=== PATIENT | female | born 1950 | race Caucasian/White ===

== ENCOUNTER → 2016-08-18 | Outpatient (CLI) | payer MEDICARE, OTHER ==
[2016-08-18 09:00] VITALS: BP 122/73
[2016-08-18 12:12] LABS: BUN/Creatinine Ratio 18.8; Calcium 8.6 mg/dL (8.5-10.1); Potassium 3.9 mmol/L (3.5-5.1)
[2016-08-18 12:13] LABS: INR 0.99 (0.9-1.15); Partial Thromboplastin Time 24.3 sec (22.64-33.71); Prothrombin Time 10.2 sec (9.37-12.3)
[2016-08-18 12:56] LABS: Basophils # (auto) 0.1 uL; Basophils % (auto) 2.7 % (0.0-2.0); Eosinophils # (auto) 0.1 uL; Hematocrit 39.7 % (36.0-46.0); Hemoglobin 13.1 g/dL (12.2-16.2); Lymphocytes # (auto) 1.1 uL; Lymphocytes % (auto) 32.6 % (10.0-50.0); Mean Corpuscular Hemoglobin 29.8 pg (28.0-32.0); Mean Corpuscular Volume 90.1 fL (80.0-100.0); Monocytes # (auto) 0.3 uL; Monocytes % (auto) 8.2 % (0.0-12.0); Neutrophils # (auto) 1.7 uL; Neutrophils % (auto) 52.5 % (37.0-80.0); Platelet Count (auto) 190 10^3/uL (140-450); Red Cell Distribution Width 12.1 % (11.6-16.0); White Blood Cell 3.3 10^3/uL (4.4-10.8)
== END | disposition home or self-care (01) ==
LOC: Rad HDHVI 08:50
PROVIDERS: ATTEND Internal Medicine Cardiovascular Disease
DX: I10 Essential (primary) hypertension (principal); D64.9 Anemia, unspecified; R79.1 Abnormal coagulation profile
CPT/HCPCS: 36415; 71020; 80048; 85025; 85049; 85610; 85730; 93017; G0463

== ENCOUNTER 2016-08-23 06:51 | Day surgery (SDC) | payer MEDICARE, OTHER ==
[2016-08-23] MEDS ORDERED: LIDOCAINE 2%HCL (LOCAL ANESTH.) INJ 20ML MDV ONE (07:19)
[2016-08-23] MEDS ORDERED: IOHEXOL 350 MG/ML 100ML IJ ONE ×2 (07:19→08:54)
[2016-08-23] MEDS ORDERED: TRAM50TA2 PO (07:47)
[2016-08-23] MEDS ORDERED: HYDR200T OR (07:47)
[2016-08-23] MEDS ORDERED: ATE50T PO (07:47)
[2016-08-23] MEDS ORDERED: CYCL0.05 EACHEYE (07:47)
[2016-08-23] MEDS ORDERED: CYCL1POW25 XX (07:47)
[2016-08-23] MEDS ORDERED: LEVO75TA6 PO (07:47)
[2016-08-23] MEDS ORDERED: DEXL60CA3 PO (07:47)
[2016-08-23] MEDS ORDERED: SIMV-8 PO (07:47)
[2016-08-23] MEDS ORDERED: MIDAZOLAM HCL 1MG/1ML-2 ML VIAL ONE (08:35)
[2016-08-23] MEDS ORDERED: ANGIOMAX 250 MG VIAL IV ONE (08:36)
[2016-08-23] MEDS ORDERED: fentaNYL CITRATE 100 MCG/2 ML VL ONE (08:36)
[2016-08-23] MEDS ORDERED: SODIUM CHL 0.9% 0 ML ONE (08:36)
[2016-08-23] MEDS ORDERED: HYDROcodone-ACET 5/325MG TAB PO PRN (09:30)
[2016-08-23] MEDS ORDERED: ACETAMINOPHEN 500 MG TAB PO PRN (09:30)
== END 2016-08-23 11:30 | disposition home or self-care (01) ==
LOC: CATH 06:51
PROVIDERS: ATTEND Internal Medicine Cardiovascular Disease
DX: R94.39 Abnormal result of other cardiovascular function study (principal)
CPT/HCPCS: 93458; C1760; C1894; J1644; J2250; J3010; Q9967

== ENCOUNTER → 2016-12-14 | Outpatient (CLI) | payer MEDICARE, OTHER ==
[~2016-12-14] MED LIST: ATE50T PO; CYCL0.05 EACHEYE; CYCL1POW25 XX; DEXL60CA3 PO; HYDR200T OR; LEVO75TA6 PO; SIMV-8 PO; TRAM50TA2 PO
[2016-12-14 08:32] LABS: Basophils # (auto) 0.1 uL; Basophils % (auto) 1.4 % (0.0-2.0); Eosinophils # (auto) 0.2 uL; Eosinophils % (auto) 4.6 % (0.0-7.0); Hematocrit 39.5 % (36.0-46.0); Hemoglobin 13.3 g/dL (12.2-16.2); Lymphocytes # (auto) 1.3 uL; Mean Corpuscular Hemoglobin 29.8 pg (28.0-32.0); Mean Corpuscular Hgb Conc. 33.6 g/dL (32.0-36.0); Mean Corpuscular Volume 88.5 fL (80.0-100.0); Mean Platelet Volume 8.4 fL (7.4-10.4); Monocytes # (auto) 0.3 uL; Monocytes % (auto) 7.7 % (0.0-12.0); Neutrophils # (auto) 1.9 uL; Neutrophils % (auto) 51.3 % (37.0-80.0); Platelet Count (auto) 242 10^3/uL (140-450); Red Cell Distribution Width 12.9 % (11.6-16.0); White Blood Cell 3.7 10^3/uL (4.4-10.8)
[2016-12-14 09:02] LABS: Albumin 3.7 g/dL (3.4-5.0); BUN/Creatinine Ratio 27.3; Bilirubin, Total 0.6 mg/dL (0.2-1.0); Potassium 4.1 mmol/L (3.5-5.1); Total Protein 6.5 g/dL (6.4-8.2)
[2016-12-14 10:39] LABS: Aspartate Aminotransferase 16 U/L (15-37); Cholesterol 172 mg/dL (< 200); HDL Cholesterol 81 mg/dL (40-59); LDL Cholesterol 96 mg/dL (< 100); Triglycerides 73 mg/dL (< 150)
== END | disposition home or self-care (01) ==
LOC: LAB 08:04
DX: M06.9 Rheumatoid arthritis, unspecified (principal); E03.9 Hypothyroidism, unspecified; I10 Essential (primary) hypertension; D64.9 Anemia, unspecified; M25.50 Pain in unspecified joint; Z79.899 Other long term (current) drug therapy
CPT/HCPCS: 36415; 80053; 80061; 84443; 84450; 85025; 85652; 86141

== ENCOUNTER → 2017-01-04 | Outpatient (CLI) | payer MEDICARE, OTHER ==
[2017-01-04 13:16] LABS: Urine Bilirubin Negative (Negative); Urine Blood Negative /uL (Negative); Urine Color Yellow (Yellow); Urine Glucose Normal (Normal); Urine Ketone Negative (Negative); Urine Nitrite Negative (Negative); Urine RBC 3 /hpf (0 - 4); Urine Squamous Epithelial Cell FEW /hpf (<5); Urine Urobilinogen Normal (Negative)
== END | disposition home or self-care (01) ==
LOC: LAB 12:49
DX: M06.9 Rheumatoid arthritis, unspecified (principal); E03.9 Hypothyroidism, unspecified
CPT/HCPCS: 81001

== ENCOUNTER → 2017-02-27 | Outpatient (CLI) | payer MEDICARE, OTHER ==
[2017-02-27 09:10] LABS: Urine Bilirubin Negative (Negative); Urine Blood TRACE /uL (Negative); Urine Color Yellow (Yellow); Urine Glucose Normal (Normal); Urine Ketone Negative (Negative); Urine Nitrite Negative (Negative); Urine RBC 2 /hpf (0 - 4); Urine Urobilinogen Normal (Negative)
[2017-02-27 09:12] LABS: Basophils # (auto) 0.1 uL; Basophils % (auto) 1.4 % (0.0-2.0); CONDITION Y; Eosinophils # (auto) 0.2 uL; Eosinophils % (auto) 5.8 % (0.0-7.0); Hematocrit 41.3 % (36.0-46.0); Hemoglobin 13.8 g/dL (12.2-16.2); Lymphocytes # (auto) 1.3 uL; Mean Corpuscular Hemoglobin 29.5 pg (28.0-32.0); Mean Corpuscular Hgb Conc. 33.4 g/dL (32.0-36.0); Mean Corpuscular Volume 88.5 fL (80.0-100.0); Mean Platelet Volume 8.4 fL (7.4-10.4); Monocytes # (auto) 0.3 uL; Monocytes % (auto) 8.5 % (0.0-12.0); Neutrophils # (auto) 1.8 uL; Neutrophils % (auto) 49.3 % (37.0-80.0); Platelet Count (auto) 247 10^3/uL (140-450); Red Cell Distribution Width 12.9 % (11.6-16.0); White Blood Cell 3.7 10^3/uL (4.4-10.8)
[2017-02-27 09:57] LABS: Albumin 3.8 g/dL (3.4-5.0); BUN/Creatinine Ratio 18.9; Bilirubin, Total 0.6 mg/dL (0.2-1.0); Total Protein 6.7 g/dL (6.4-8.2)
== END | disposition home or self-care (01) ==
LOC: LAB 08:28
DX: M06.9 Rheumatoid arthritis, unspecified (principal); D64.9 Anemia, unspecified; I10 Essential (primary) hypertension; C34.90 Malignant neoplasm of unspecified part of unspecified bronchus or lung; E03.9 Hypothyroidism, unspecified; E78.2 Mixed hyperlipidemia
CPT/HCPCS: 36415; 80053; 80061; 81001; 84443; 85025; 85652; 86141

== ENCOUNTER → 2018-12-18 | Outpatient (CLI) | payer MEDICARE, OTHER ==
[~2018-12-18] MED LIST changes: +HYDR-4441 OR; -HYDR200T OR
[2018-12-18 12:09] LABS: Basophils # (auto) 0 uL; Basophils % (auto) 1.3 % (0.0-2.0); Eosinophils # (auto) 0.1 uL; Eosinophils % (auto) 2.9 % (0.0-7.0); Hemoglobin 13.5 g/dL (12.2-16.2); Lymphocytes # (auto) 0.9 uL; Lymphocytes % (auto) 29.2 % (10.0-50.0); Mean Corpuscular Hemoglobin 30.6 pg (28.0-32.0); Mean Corpuscular Hgb Conc. 33.7 g/dL (32.0-36.0); Mean Corpuscular Volume 90.9 fL (80.0-100.0); Monocytes # (auto) 0.3 uL; Monocytes % (auto) 8.4 % (0.0-12.0); Neutrophils # (auto) 1.9 uL; Neutrophils % (auto) 58.2 % (37.0-80.0); Nucleated Red Blood Cells % 0.1 %; Platelet Count (auto) 191 10^3/uL (140-450); Red Cell Distribution Width 13.1 % (11.8-14.3); Urine Blood Negative /uL (Negative); White Blood Cell 3.2 10^3/uL (4.4-10.8)
[2018-12-18 12:18] LABS: Potassium 4.1 mmol/L (3.5-5.1)
[2018-12-18 12:24] LABS: Free T4 (Free Thyroxine) 1.04 ng/dL (0.89-1.76)
[2018-12-18 12:26] LABS: BUN/Creatinine Ratio 17.8; Bilirubin, Total 0.5 mg/dL (0.2-1.0); Total Protein 6.7 g/dL (6.4-8.2)
== END | disposition home or self-care (01) ==
LOC: Rad HDHVI 07:46
PROVIDERS: ATTEND Internal Medicine Cardiovascular Disease
DX: I08.8 Other rheumatic multiple valve diseases (principal); E03.9 Hypothyroidism, unspecified; E55.9 Vitamin D deficiency, unspecified; D51.9 Vitamin B12 deficiency anemia, unspecified; N39.0 Urinary tract infection, site not specified; R42 Dizziness and giddiness; Z79.899 Other long term (current) drug therapy
CPT/HCPCS: 36415; 80053; 80061; 81003; 82306; 82607; 83036; 84439; 84443; 85025; 93306; 93880

== ENCOUNTER 2019-02-03 09:36 | Day surgery (SDC) | payer MEDICARE, OTHER ==
[2019-01-28 08:41] LABS: Basophils # (auto) 0 uL; Basophils % (auto) 1.2 % (0.0-2.0); Eosinophils # (auto) 0.1 uL; Eosinophils % (auto) 2.6 % (0.0-7.0); Hematocrit 39.1 % (36.0-46.0); Hemoglobin 13.1 g/dL (12.2-16.2); Lymphocytes # (auto) 0.8 uL; Lymphocytes % (auto) 19.9 % (10.0-50.0); Mean Corpuscular Hemoglobin 30.3 pg (28.0-32.0); Mean Corpuscular Hgb Conc. 33.5 g/dL (32.0-36.0); Mean Corpuscular Volume 90.7 fL (80.0-100.0); Monocytes # (auto) 0.4 uL; Monocytes % (auto) 10.3 % (0.0-12.0); Neutrophils # (auto) 2.6 uL; Platelet Count (auto) 189 10^3/uL (140-450); Red Blood Cells 4.32 10^6/uL (4.0-5.20); Red Cell Distribution Width 13.3 % (11.8-14.3)
[2019-01-28 08:56] LABS: Urine Bacteria NONE SEEN /hpf (None Seen); Urine Blood TRACE /uL (Negative); Urine Specific Gravity 1.006 (1.001-1.035); Urine WBC <1 /hpf (0 - 5)
[2019-01-28 09:05] LABS: INR 0.96 (0.9-1.15); Partial Thromboplastin Time 23.1 sec (23.64-32.05)
[2019-01-28 09:18] LABS: Alanine Aminotransferase 25 U/L (13-56); Albumin 4.1 g/dL (3.4-5.0); Anion Gap 8 (5-15); Aspartate Aminotransferase 21 U/L (15-37); BUN/Creatinine Ratio 18.1; Blood Urea Nitrogen 15 mg/dL (7-18); Carbon Dioxide 26 mmol/L (21-32); Chloride 110 mmol/L (98-107); GFR African American 87 mL/min; GFR Non-African American 72 mL/min; Glucose 116 mg/dL (74-106); Sodium 144 mmol/L (136-145)
[2019-01-28 09:21] LABS: Alkaline Phosphatase 41 U/L (45-117); Bilirubin, Total 0.7 mg/dL (0.2-1.0); Total Protein 6.9 g/dL (6.4-8.2)
[~2019-02-03] VITALS: Ht 162.6 cm; Wt 73.0 kg
[~2019-02-03 09:36] MED LIST changes: +ALBUAER3 IN; +CELE100C82 PO; -CYCL1POW25 XX; +CYCL1TAB18 PO; +TOFA10TA PO
[2019-02-03] MEDS ORDERED: MIDAZOLAM HCL 1MG/1ML-2 ML VIAL ONE (11:04)
[2019-02-03] MEDS ORDERED: METOCLOPRAMIDE HCL 5MG/ml INJ 2ml VIAL ONE (11:04)
[2019-02-03] MEDS ORDERED: GLYCOPYRROLATE 0.2 MG/ML 1ML VIAL ONE (11:05)
[2019-02-03] MEDS ORDERED: diphenhdrAMINE HCL 50 MG/1 ML VL ONE (11:05)
[2019-02-03] MEDS ORDERED: PROPOFOL 10 MG/ML 20 ML IV ONE (11:06)
[2019-02-03] MEDS ORDERED: LIDOCAINE 2% (LOCAL ANESTH.) PF 5ml SDV ONE (11:06)
[2019-02-03] MEDS ORDERED: ESMOLOL HCL 10 ML IV ONE (11:28)
[2019-02-03] MEDS ORDERED: ONDANSETRON HCL 4 MG/2 ML VIAL IV ONE (11:30)
[2019-02-03] MEDS ORDERED: NALOXONE HCL 0.4 MG/ML VIAL IV PRN (11:30)
[2019-02-03] MEDS ORDERED: HYDROmorphone HCL 2 MG/ML VL IV PRN (11:30)
[2019-02-03 12:00] VITALS: BP 129/86
== END 2019-02-03 12:10 | disposition home or self-care (01) ==
LOC: GI 09:36
PROVIDERS: ATTEND Internal Medicine Gastroenterology
DX: K92.1 Melena (principal); K59.00 Constipation, unspecified; K64.8 Other hemorrhoids; E66.9 Obesity, unspecified; M19.90 Unspecified osteoarthritis, unspecified site; I10 Essential (primary) hypertension; K21.9 Gastro-esophageal reflux disease without esophagitis; J44.9 Chronic obstructive pulmonary disease, unspecified; G47.33 Obstructive sleep apnea (adult) (pediatric); Z68.27 Body mass index [BMI] 27.0-27.9, adult; Z91.018 Allergy to other foods; Z87.891 Personal history of nicotine dependence; Z85.118 Personal history of other malignant neoplasm of bronchus and lung; Z85.42 Personal history of malignant neoplasm of other parts of uterus; Z86.010 Personal history of colon polyps; Z90.710 Acquired absence of both cervix and uterus; Z98.890 Other specified postprocedural states; Z79.899 Other long term (current) drug therapy; Z98.49 Cataract extraction status, unspecified eye; Z80.1 Family history of malignant neoplasm of trachea, bronchus and lung
CPT/HCPCS: 36415; 43235; 45378; 80053; 81001; 85025; 85610; 85730; J1200; J2001; J2250; J2704; J2765; J7030; 93005

== ENCOUNTER → 2019-12-08 | Outpatient (CLI) | payer MEDICARE, OTHER ==
[~2019-12-08] MED LIST changes: +HYDR-4188 OR; -HYDR-4441 OR
[2019-12-08 16:04] LABS: Basophils # (auto) 0.1 10 ^3/uL (0-0.2); Eosinophils # (auto) 0.2 10 ^3/uL (0-0.8); Eosinophils % (auto) 3.2 % (0.0-7.0); Hematocrit 40.5 % (36.0-46.0); Hemoglobin 13.4 g/dL (12.2-16.2); Lymphocytes # (auto) 1.6 10 ^3/uL (0.4-5.4); Lymphocytes % (auto) 29.1 % (10.0-50.0); Mean Corpuscular Hemoglobin 29.9 pg (28.0-32.0); Mean Corpuscular Hgb Conc. 33.1 g/dL (32.0-36.0); Mean Corpuscular Volume 90.4 fL (80.0-100.0); Monocytes # (auto) 0.5 10 ^3/uL (0-1.3); Monocytes % (auto) 9.8 % (0.0-12.0); Neutrophils % (auto) 56.9 % (37.0-80.0); Nucleated Red Blood Cells % 0.2 %; Platelet Count (auto) 217 10^3/uL (140-450); Red Blood Cells 4.49 10^6/uL (4.0-5.20); Red Cell Distribution Width 12.8 % (11.8-14.3); White Blood Cell 5.3 10^3/uL (4.4-10.8)
[2019-12-08 16:08] LABS: Albumin 3.6 g/dL (3.4-5.0); Potassium 4.1 mmol/L (3.5-5.1)
[2019-12-08 16:16] LABS: BUN/Creatinine Ratio 17.1; Bilirubin, Direct 0.1 mg/dL (0-0.2); Bilirubin, Total 0.4 mg/dL (0.2-1.0); Calcium 9.1 mg/dL (8.5-10.1)
[2019-12-08 17:01] LABS: Urine Bacteria FEW /hpf (None Seen); Urine Blood TRACE /uL (Negative); Urine Mucus FEW (None Seen); Urine Specific Gravity 1.008 (1.001-1.035); Urine WBC 69 /hpf (0 - 5); Urine WBC Clumps PRESENT /hpf (None Seen)
== END | disposition home or self-care (01) ==
LOC: Rad HDHVI 12:11
PROVIDERS: ATTEND Internal Medicine Cardiovascular Disease
DX: Z00.00 Encounter for general adult medical examination without abnormal findings (principal); E03.9 Hypothyroidism, unspecified; K90.9 Intestinal malabsorption, unspecified; Z79.899 Other long term (current) drug therapy; N39.0 Urinary tract infection, site not specified
CPT/HCPCS: 36415; 80048; 80061; 80076; 81001; 82306; 83036; 84443; 85025

== ENCOUNTER → 2019-12-15 | Outpatient (CLI) | payer MEDICARE, OTHER ==
[2019-12-15 15:54] LABS: Urine Blood TRACE /uL (Negative); Urine Specific Gravity 1.014 (1.001-1.035)
== END | disposition home or self-care (01) ==
LOC: LAB 11:23
PROVIDERS: ATTEND Internal Medicine Cardiovascular Disease
DX: N39.0 Urinary tract infection, site not specified (principal)
CPT/HCPCS: 81003

== ENCOUNTER → 2020-01-05 | Outpatient (CLI) | payer MEDICARE, OTHER ==
[~2020-01-05] MED LIST changes: +CYCL10TA6 PO; -CYCL1TAB18 PO
[2020-01-05 13:16] LABS: Basophils # (auto) 0.1 10 ^3/uL (0-0.2); Basophils % (auto) 2.7 % (0.0-2.0); Eosinophils # (auto) 0.2 10 ^3/uL (0-0.8); Eosinophils % (auto) 3.4 % (0.0-7.0); Hematocrit 38.2 % (36.0-46.0); Lymphocytes # (auto) 1.1 10 ^3/uL (0.4-5.4); Lymphocytes % (auto) 24.3 % (10.0-50.0); Mean Corpuscular Hemoglobin 30.5 pg (28.0-32.0); Mean Corpuscular Volume 89.6 fL (80.0-100.0); Monocytes # (auto) 0.4 10 ^3/uL (0-1.3); Neutrophils # (auto) 2.8 10 ^3/uL (1.6-8.6); Neutrophils % (auto) 60.6 % (37.0-80.0); Nucleated Red Blood Cells % 0.1 %; Platelet Count (auto) 175 10^3/uL (140-450); Red Blood Cells 4.26 10^6/uL (4.0-5.20); Red Cell Distribution Width 12.6 % (11.8-14.3); White Blood Cell 4.6 10^3/uL (4.4-10.8)
[2020-01-05 16:23] LABS: Alanine Aminotransferase 26 U/L (13-56); Albumin 3.8 g/dL (3.4-5.0); Anion Gap 6 (5-15); Aspartate Aminotransferase 21 U/L (15-37); BUN/Creatinine Ratio 18.2; Blood Urea Nitrogen 14 mg/dL (7-18); Calcium 8.7 mg/dL (8.5-10.1); Carbon Dioxide 29 mmol/L (21-32); Chloride 104 mmol/L (98-107); GFR African American 95 mL/min; GFR Non-African American 79 mL/min; Glucose 98 mg/dL (74-106); Potassium 4.1 mmol/L (3.5-5.1); Sodium 139 mmol/L (136-145)
[2020-01-05 16:25] LABS: Alkaline Phosphatase 47 U/L (45-117); Bilirubin, Total 0.5 mg/dL (0.2-1.0); Total Protein 6.8 g/dL (6.4-8.2)
[2020-01-05 19:15] LABS: CRP High Sensitivity 0.07 mg/dL (< 0.3)
== END | disposition home or self-care (01) ==
LOC: LAB 13:01
PROVIDERS: ATTEND Internal Medicine Rheumatology
DX: M05.79 Rheumatoid arthritis with rheumatoid factor of multiple sites without organ or systems involvement (principal); M32.10 Systemic lupus erythematosus, organ or system involvement unspecified
CPT/HCPCS: 36415; 80053; 85025; 85652; 86038; 86141; 86225

== ENCOUNTER → 2020-03-09 | Outpatient (CLI) | payer MEDICARE, OTHER ==
[~2020-03-09] MED LIST changes: -DEXL60CA3 PO; +DEXL60CA4 PO
[2020-03-09 15:59] LABS: Basophils # (auto) 0.1 10 ^3/uL (0-0.2); Basophils % (auto) 2.7 % (0.0-2.0); Eosinophils # (auto) 0.2 10 ^3/uL (0-0.8); Eosinophils % (auto) 4.9 % (0.0-7.0); Hemoglobin 13.4 g/dL (12.2-16.2); Lymphocytes # (auto) 1.2 10 ^3/uL (0.4-5.4); Lymphocytes % (auto) 34.3 % (10.0-50.0); Mean Corpuscular Hemoglobin 29.9 pg (28.0-32.0); Mean Corpuscular Hgb Conc. 32.7 g/dL (32.0-36.0); Mean Corpuscular Volume 91.3 fL (80.0-100.0); Monocytes # (auto) 0.3 10 ^3/uL (0-1.3); Monocytes % (auto) 9.8 % (0.0-12.0); Neutrophils # (auto) 1.6 10 ^3/uL (1.6-8.6); Neutrophils % (auto) 48.3 % (37.0-80.0); Platelet Count (auto) 212 10^3/uL (140-450); Red Cell Distribution Width 13.3 % (11.8-14.3); White Blood Cell 3.4 10^3/uL (4.4-10.8)
[2020-03-09 16:00] LABS: CRP High Sensitivity 0.03 mg/dL (< 0.3); Calcium 8.9 mg/dL (8.5-10.1); Potassium 3.8 mmol/L (3.5-5.1)
[2020-03-09 16:04] LABS: BUN/Creatinine Ratio 16.9; Bilirubin, Total 0.4 mg/dL (0.2-1.0); Total Protein 6.7 g/dL (6.4-8.2)
== END | disposition home or self-care (01) ==
LOC: LAB 11:26
PROVIDERS: ATTEND Internal Medicine Cardiovascular Disease
DX: M05.79 Rheumatoid arthritis with rheumatoid factor of multiple sites without organ or systems involvement (principal)
CPT/HCPCS: 36415; 80053; 85025; 85652; 86141

== ENCOUNTER → 2020-07-27 | Outpatient (CLI) | payer MEDICARE, OTHER | END | disposition home or self-care (01) | LOC: Rad HDHVI 08:11 | PROVIDERS: ATTEND Internal Medicine Cardiovascular Disease | DX: I05.8 Other rheumatic mitral valve diseases (principal); I50.33 Acute on chronic diastolic (congestive) heart failure; R42 Dizziness and giddiness | CPT/HCPCS: 93306 ==

== ENCOUNTER → 2020-10-20 | Outpatient (CLI) | payer MEDICARE, OTHER ==
[~2020-10-20] MED LIST changes: +READI-CAT 2 (BARIUM SULF)(VANILLA SMOOTHIE) 450ML ONE
== END | disposition home or self-care (01) ==
LOC: Rad HDHVI 09:37
PROVIDERS: ATTEND Internal Medicine Cardiovascular Disease
DX: N28.1 Cyst of kidney, acquired (principal); I70.0 Atherosclerosis of aorta; M47.816 Spondylosis without myelopathy or radiculopathy, lumbar region; M25.78 Osteophyte, vertebrae
CPT/HCPCS: 74176

== ENCOUNTER → 2021-03-02 | Outpatient (CLI) | payer MEDICARE, OTHER ==
[~2021-03-02] MED LIST changes: -READI-CAT 2 (BARIUM SULF)(VANILLA SMOOTHIE) 450ML ONE
== END | disposition home or self-care (01) ==
LOC: Rad HDHVI 13:47
PROVIDERS: ATTEND Internal Medicine Cardiovascular Disease
DX: R07.89 Other chest pain (principal); R06.02 Shortness of breath
CPT/HCPCS: 93306

== ENCOUNTER → 2021-03-11 | Outpatient (CLI) | payer MEDICARE, OTHER ==
[2021-03-11 11:27] LABS: Urine Blood TRACE /uL (Negative); Urine Specific Gravity 1.015 (1.001-1.035)
[2021-03-11 11:29] LABS: Basophils # (auto) 0.1 10 ^3/uL (0-0.2); Basophils % (auto) 1.8 % (0.0-2.0); Eosinophils # (auto) 0.1 10 ^3/uL (0-0.8); Eosinophils % (auto) 2.7 % (0.0-7.0); Hematocrit 38.5 % (36.0-46.0); Hemoglobin 13.4 g/dL (12.2-16.2); Lymphocytes # (auto) 0.9 10 ^3/uL (0.4-5.4); Lymphocytes % (auto) 30.1 % (10.0-50.0); Mean Corpuscular Hemoglobin 31.3 pg (28.0-32.0); Mean Corpuscular Hgb Conc. 34.9 g/dL (32.0-36.0); Mean Corpuscular Volume 89.7 fL (80.0-100.0); Monocytes # (auto) 0.3 10 ^3/uL (0-1.3); Monocytes % (auto) 9.6 % (0.0-12.0); Neutrophils # (auto) 1.7 10 ^3/uL (1.6-8.6); Neutrophils % (auto) 55.8 % (37.0-80.0); Red Blood Cells 4.29 10^6/uL (4.0-5.20)
[2021-03-11 11:41] LABS: Potassium 3.6 mmol/L (3.5-5.1)
[2021-03-11 11:50] LABS: Free T4 (Free Thyroxine) 1.2 ng/dL (0.89-1.76)
[2021-03-11 11:53] LABS: Albumin 3.5 g/dL (3.4-5.0); BUN/Creatinine Ratio 19.3; Bilirubin, Total 0.8 mg/dL (0.2-1.0); Total Protein 6.4 g/dL (6.4-8.2)
== END | disposition home or self-care (01) ==
LOC: LAB 07:52
PROVIDERS: ATTEND Internal Medicine Cardiovascular Disease
DX: D51.3 Other dietary vitamin B12 deficiency anemia (principal); I10 Essential (primary) hypertension; E11.9 Type 2 diabetes mellitus without complications; E55.9 Vitamin D deficiency, unspecified; D64.9 Anemia, unspecified; R00.2 Palpitations; R53.1 Weakness; R30.0 Dysuria
CPT/HCPCS: 36415; 80053; 80061; 81003; 82306; 82607; 83036; 84439; 84443; 85025

== ENCOUNTER → 2021-03-14 | Outpatient (CLI) | payer MEDICARE, OTHER ==
[~2021-03-14] VITALS: Ht 160 cm; Wt 70.8 kg
[~2021-03-14] MED LIST changes: +ADENOSINE 59 MG in GIVE UN-DILUTED 0 ML IV ONE; +ADENOSINE 90 MG/30 ML INJ IV ONE
== END | disposition home or self-care (01) ==
LOC: Rad HDHVI 13:20
PROVIDERS: ATTEND Internal Medicine Cardiovascular Disease
DX: I10 Essential (primary) hypertension (principal); E78.5 Hyperlipidemia, unspecified; E11.9 Type 2 diabetes mellitus without complications; Z82.49 Family history of ischemic heart disease and other diseases of the circulatory system
CPT/HCPCS: 78452; 93005; 96374; 96375; A9500; J0153

== ENCOUNTER → 2021-06-27 | Outpatient (CLI) | payer MEDICARE, OTHER ==
[~2021-06-27] MED LIST changes: -ADENOSINE 59 MG in GIVE UN-DILUTED 0 ML IV ONE; -ADENOSINE 90 MG/30 ML INJ IV ONE; +CYCL-839 PO; -CYCL10TA6 PO
[2021-06-27 12:06] LABS: Urine Blood Negative /uL (Negative); Urine Specific Gravity 1.011 (1.001-1.035)
== END | disposition home or self-care (01) ==
LOC: LAB 10:20
PROVIDERS: ATTEND Internal Medicine Cardiovascular Disease
DX: N39.0 Urinary tract infection, site not specified (principal)
CPT/HCPCS: 81003; 87086; 87088; 87186

== ENCOUNTER → 2021-08-08 | Outpatient (CLI) | payer MEDICARE, OTHER ==
[2021-08-08 11:46] LABS: Basophils # (auto) 0 10 ^3/uL (0-0.2); Basophils % (auto) 1.2 % (0.0-2.0); Eosinophils # (auto) 0.1 10 ^3/uL (0-0.8); Eosinophils % (auto) 3.9 % (0.0-7.0); Hematocrit 40.2 % (36.0-46.0); Hemoglobin 13.6 g/dL (12.2-16.2); Lymphocytes % (auto) 28.8 % (10.0-50.0); Mean Corpuscular Hemoglobin 30.5 pg (28.0-32.0); Mean Corpuscular Hgb Conc. 33.9 g/dL (32.0-36.0); Mean Corpuscular Volume 89.9 fL (80.0-100.0); Monocytes # (auto) 0.3 10 ^3/uL (0-1.3); Monocytes % (auto) 9.3 % (0.0-12.0); Neutrophils # (auto) 1.9 10 ^3/uL (1.6-8.6); Neutrophils % (auto) 56.8 % (37.0-80.0); Red Blood Cells 4.47 10^6/uL (4.0-5.20); Red Cell Distribution Width 12.2 % (11.8-14.3); White Blood Cell 3.4 10^3/uL (4.4-10.8)
[2021-08-08 12:53] LABS: Potassium 4.4 mmol/L (3.5-5.1)
[2021-08-08 13:00] LABS: Albumin 3.5 g/dL (3.4-5.0); BUN/Creatinine Ratio 23.6; Bilirubin, Total 0.4 mg/dL (0.2-1.0); CRP High Sensitivity 0.05 mg/dL (< 0.3); Calcium 8.8 mg/dL (8.5-10.1); Total Protein 6.3 g/dL (6.4-8.2)
== END | disposition home or self-care (01) ==
LOC: LAB 08:47
PROVIDERS: ATTEND Internal Medicine Cardiovascular Disease
DX: M05.79 Rheumatoid arthritis with rheumatoid factor of multiple sites without organ or systems involvement (principal)
CPT/HCPCS: 36415; 80053; 85025; 85652; 86141

== ENCOUNTER → 2022-03-20 | Outpatient (CLI) | payer MEDICARE, OTHER ==
[2022-03-20 17:12] LABS: Urine Blood TRACE /uL (Negative); Urine Specific Gravity 1.013 (1.001-1.035)
== END | disposition home or self-care (01) ==
LOC: Rad HDHVI 09:45
PROVIDERS: ATTEND Internal Medicine Cardiovascular Disease
DX: N39.0 Urinary tract infection, site not specified (principal); M17.11 Unilateral primary osteoarthritis, right knee
CPT/HCPCS: 73562; 81003

== ENCOUNTER → 2022-04-04 | Outpatient (CLI) | payer MEDICARE, OTHER | END | disposition home or self-care (01) | LOC: Rad HDHVI 15:51 | PROVIDERS: ATTEND Internal Medicine Cardiovascular Disease | DX: I10 Essential (primary) hypertension (principal); R42 Dizziness and giddiness | CPT/HCPCS: 93306 ==

== ENCOUNTER → 2022-05-15 | Outpatient (CLI) | payer MEDICARE, OTHER | END | disposition home or self-care (01) | LOC: Rad HDHVI 10:54 | PROVIDERS: ATTEND Internal Medicine | DX: M25.571 Pain in right ankle and joints of right foot (principal); Z98.1 Arthrodesis status | CPT/HCPCS: 73630 ==

== ENCOUNTER → 2022-07-26 | Outpatient (CLI) | payer MEDICARE, OTHER ==
[2022-07-26 11:41] LABS: Urine Blood TRACE /uL (Negative); Urine Specific Gravity 1.015 (1.001-1.035)
== END | disposition home or self-care (01) ==
LOC: LAB 11:06
PROVIDERS: ATTEND Internal Medicine Cardiovascular Disease
DX: N39.0 Urinary tract infection, site not specified (principal)
CPT/HCPCS: 81003

== ENCOUNTER → 2022-09-20 | Outpatient (CLI) | payer MEDICARE, OTHER | END | disposition home or self-care (01) | LOC: Rad HDHVI 08:02 | PROVIDERS: ATTEND Internal Medicine Cardiovascular Disease | DX: I08.8 Other rheumatic multiple valve diseases (principal); I10 Essential (primary) hypertension; R06.02 Shortness of breath | CPT/HCPCS: 93306 ==

== ENCOUNTER → 2023-09-14 | Outpatient (CLI) | payer MEDICARE, OTHER ==
[~2023-09-14] MED LIST changes: -SIMV-8 PO; +SIMV20TA20 PO
== END | disposition home or self-care (01) ==
LOC: Rad HDHVI 13:43
PROVIDERS: ATTEND Internal Medicine Cardiovascular Disease
DX: I10 Essential (primary) hypertension (principal); I73.9 Peripheral vascular disease, unspecified
CPT/HCPCS: 93306

== ENCOUNTER → 2023-11-21 | Outpatient (CLI) | payer MEDICARE, OTHER ==
[~2023-11-21] MED LIST changes: -HYDR-4188 OR; +HYDR-4491 OR
== END | disposition home or self-care (01) ==
LOC: Rad HDHVI 10:38
PROVIDERS: ATTEND Internal Medicine Cardiovascular Disease
DX: I10 Essential (primary) hypertension (principal); I73.9 Peripheral vascular disease, unspecified
CPT/HCPCS: 93880

== ENCOUNTER → 2024-10-13 | Outpatient (CLI) | payer MEDICARE, OTHER | END | disposition home or self-care (01) | LOC: Rad HDHVI 15:17 | PROVIDERS: ATTEND Internal Medicine Cardiovascular Disease | DX: I10 Essential (primary) hypertension (principal) | CPT/HCPCS: 93880 ==

== ENCOUNTER 2025-02-10 09:52 | Outpatient (CLI) | payer MEDICARE, OTHER | END 2025-02-10 17:00 | disposition home or self-care (01) | LOC: Rad HDHVI 09:52 | PROVIDERS: ATTEND Internal Medicine Cardiovascular Disease | DX: I08.8 Other rheumatic multiple valve diseases (principal); I10 Essential (primary) hypertension | CPT/HCPCS: 93306 ==

== ENCOUNTER 2025-05-20 12:48 | Outpatient (CLI) | payer MEDICARE, OTHER ==
[2025-05-20 12:50] VITALS: BP 137/77; PULSE 70; RESP 16; O2SAT 96
[2025-05-20 13:36] VITALS: BP 125/56; PULSE 59; RESP 16; O2SAT 96
== END 2025-05-20 17:00 | disposition home or self-care (01) ==
LOC: CHF HDHVI 12:48
PROVIDERS: ATTEND Internal Medicine Cardiovascular Disease
DX: N39.0 Urinary tract infection, site not specified (principal); I10 Essential (primary) hypertension
CPT/HCPCS: 96365; G0463; J0696